=== PATIENT | female | born 1985 | race American Indian/Alaskan Native ===

== ENCOUNTER 2017-03-09 10:30 | Emergency (ER) | payer MEDICAID ==
[2017-03-09 11:06] VITALS: BP 132/86; PULSE 81; RESP 20; TEMP 98.4; O2SAT 100
[2017-03-09] MEDS ORDERED: Naproxen 500 MG TAB PO ONE ×2 (11:21→11:45)
== END 2017-03-09 12:58 | disposition home or self-care (01) ==
LOC: H.ER 10:30
DX: S43.402A Unspecified sprain of left shoulder joint, initial encounter (principal); V03.10XA Pedestrian on foot injured in collision with car, pick-up truck or van in traffic accident, initial encounter; Y92.410 Unspecified street and highway as the place of occurrence of the external cause

== ENCOUNTER 2017-03-10 10:24 | Emergency (ER) | payer MEDICAID ==
[2017-03-10 10:34] VITALS: BP 147/90; PULSE 84; RESP 18; TEMP 98.9; O2SAT 99
[2017-03-10] MEDS ORDERED: Oxycodone/Acetaminophen 5/325 mg Tab PO STA (11:18)
[2017-03-10] MEDS ORDERED: Oxycodone/Acetaminophen 5/325 mg Tab ONE (11:39)
== END 2017-03-10 12:29 | disposition home or self-care (01) ==
LOC: H.ER 10:24
DX: S43.402A Unspecified sprain of left shoulder joint, initial encounter (principal)
CPT/HCPCS: 73060; 73080; 81025; 96372; 99283; J1885

== ENCOUNTER 2017-10-18 18:49 | Emergency (ER) | payer MEDICAID ==
[2017-10-18 18:56] VITALS: BP 156/90; PULSE 103; RESP 40; TEMP 98.6; O2SAT 100
[2017-10-18] MEDS ORDERED: Sodium Chloride 0.9% 1,000 ML IV STA (19:40)
--- NOTE | 2017-10-18 20:14 | ED PDOC ---
HPI: Chest Pain Time Seen by Provider: 10/18/17 19:19 Chief Complaint (Nursing): Chest Pain Chief Complaint (Provider): Chest Pain History Per: Patient History/Exam Limitations: no limitations Onset/Duration Of Symptoms: Hrs (today) Current Symptoms Are (Timing): Still Present Associated Symptoms: Nausea, Dyspnea Additional Complaint(s): Talya Nguyen is a 32 year old female, with a past medical history of ovarian cysts, who presents to the emergency department complaining of chest pain associated with nausea onset today. Patient reports she went to work when she became acutely nauseous with shortness of breath and chest pain. She is extremely tearful on arrival and states she has been confronting fertility issues. Patient does report feeling anxious lately and preoccupied about not becoming . She denies any other medical complaints. PMD: None provided. Past Medical History Reviewed: Historical Data, Nursing Documentation, Vital Signs Vital Signs: Last Vital Signs Temp 98.6 F 10/18/17 18:51 Pulse 103 H 10/18/17 18:51 Resp 40 H 10/18/17 18:51 BP 156/90 H 10/18/17 18:51 Pulse Ox 100 10/18/17 20:18 - Medical History PMH: Anemia Other PMH: ovarian cysts - Surgical History Other surgeries: hip surgery as a child - Family History Family History: States: No Known Family Hx - Social History Current smoker - smoking cessation education provided: No Alcohol: None Drugs: Denies - Immunization History Hx Tetanus Toxoid Vaccination: No Hx Influenza Vaccination: No Hx Pneumococcal Vaccination: No - Home Medications Home Medications: Ambulatory Orders Medication Instructions Recorded Ibuprofen [Motrin] 600 mg PO Q6 #30 tab 09/13/17 Naproxen [Naprosyn] 1 tab PO BID PRN #25 tab 09/20/17 Metoclopramide [Reglan] 10 mg PO Q6 PRN #12 tab 10/18/17 - Allergies Allergies/Adverse Reactions: Allergies Allergy/AdvReac Type Severity Reaction Status Date / Time No Known Allergies Allergy Verified 10/18/17 18:50 Review of Systems ROS Statement: Except As Marked, All Systems Reviewed And Found Negative Cardiovascular: Positive for: Chest Pain Respiratory: Positive for: Shortness of Breath Gastrointestinal: Positive for: Nausea Physical Exam - Reviewed Nursing Documentation Reviewed: Yes Vital Signs Reviewed: Yes - Physical Exam Appears: Positive for: Non-toxic, No Acute Distress (tearful) Head Exam: Positive for: ATRAUMATIC, NORMOCEPHALIC Skin: Positive for: Normal Color, Warm, Dry Eye Exam: Positive for: Normal appearance, EOMI, PERRL ENT: Positive for: Normal ENT Inspection Neck: Positive for: Painless ROM Cardiovascular/Chest: Positive for: Regular Rate, Rhythm. Negative for: Murmur Respiratory: Positive for: Normal Breath Sounds. Negative for: Respiratory Distress Gastrointestinal/Abdominal: Positive for: Normal Exam, Soft. Negative for: Tenderness Back: Positive for: Normal Inspection. Negative for: L CVA Tenderness, R CVA Tenderness, Vertebral Tenderness Extremity: Positive for: Normal ROM (upper and lower extremities). Negative for : Deformity, Swelling Neurologic/Psych: Positive for: Alert, Oriented (x3), Mood/Affect (depressed). Negative for: Motor/Sensory Deficits - Laboratory Results Result Diagrams: 10/18/17 20:05 10/18/17 20:05 - ECG O2 Sat by Pulse Oximetry: 100 (RA) Pulse Ox Interpretation: Normal Medical Decision Making Medical Decision Making: Initial Impression: 32 y/o female with acute panic Initial Plan: --EKG --CMP --Crisis evaluation --Urine --Urine dipstick --CBC w/ differential --Sodium Chloride 1,000 ml IV 1,000 mls/hr --Zofran ODT 4 mg IV --Accucheck --Urinalysis --Reevaluation 21:55 -Labs reviewed and showed no clinical significant abnormalities. Patient reports significant improvement of symptoms. -Patient evaluated by crisis, diagnosis anxiety. -Upon provider reevaluation patient is feeling better, is medically stable, and requires no further treatment in the ED at this time. Patient will be discharged home with prescription for Reglan. Counseling was provided and all questions were answered regarding diagnosis. There is agreement to discharge plan. Return if symptoms persist or worsen. ----- Scribe Attestation: Documented by Enzo Leanne, acting as a scribe for Crispin Alvarez MD. Provider Scribe Attestation: All medical record entries made by the Scribe were at my direction and personally dictated by me. I have reviewed the chart and agree that the record accurately reflects my personal performance of the history, physical exam, medical decision making, and the department course for this patient. I have also personally directed, reviewed, and agree with the discharge instructions and disposition. Disposition - Clinical Impression Clinical Impression: Anxiety - Disposition Disposition: Routine/Home Disposition Time: 21:55 Condition: STABLE Prescriptions: Metoclopramide [Reglan] 10 mg PO Q6 PRN #12 tab PRN Reason: headache/nausea/vomiting Instructions: Anxiety, Adult (DC) Forms: [facility] (Portuguese), [facility] ED School/Work Excuse
[2017-10-18 20:17] LABS: BASO % 0.3 % (0.0-2.0); EOS % 0.1 % (0.0-4.0); HEMOGLOBIN 13.6 g/dL (12.0-16.0); LYMPH # 2.2 K/uL (1.0-4.3); LYMPH % 15.4 % (20.0-40.0); MEAN CELL VOLUME 92.5 fl (81.0-99.0); MEAN CORPUSCULAR HGB CONC 33.6 g/dL (33.0-37.0); MEAN PLATELET VOLUME 10.2 fl (7.2-11.7); MONO # 0.5 K/uL (0.0-0.8); MONO % 3.5 % (0.0-10.0); NEUT # 11.6 K/uL (1.8-7.0); NEUT % 80.7 % (50.0-75.0); NRBC % 0.1 % (0.0-0.0); RBC 4.39 Mil/uL (3.80-5.20); RED CELL DISTRIBUTION WIDTH 13.1 % (11.5-14.5); WHITE BLOOD COUNT 14.4 K/uL (4.8-10.8)
[2017-10-18 20:31] LABS: ALB/GLOB RATIO 1.2 (1.0-2.1); ALBUMIN 4.5 g/dL (3.5-5.0); ALT/SGPT 40 U/L (9-52); AST/SGOT 30 U/L (14-36); BLOOD UREA NITROGEN 10 mg/dl (7-17); CALCIUM 9.7 mg/dL (8.4-10.2); GFR AFRICAN-AMERICAN > 60; GFR NON-AFRICAN AMERICAN > 60
[2017-10-18 20:42] LABS: SQUAMOUS EPITHIAL 7 /hpf (0-5); URINE BACTERIA RARE (<OCC); URINE BILIRUBIN NEGATIVE (NEGATIVE); URINE BLOOD NEGATIVE (NEGATIVE); URINE CLARITY SLIGHTY-CLOUDY (Clear); URINE COLOR STRAW (YELLOW); URINE GLUCOSE (UA) NEG (Normal); URINE LEUKOCYTE ESTERASE NEG Leu/uL (Negative); URINE PROTEIN NEGATIVE (NEGATIVE); URINE UROBILINOGEN 0.2-1.0 mg/dL (0.2-1.0)
--- NOTE | 2017-10-19 11:58 | CARD ---
APPROVED REPORT EKG Measurement Heart [id number] <Conclusion> Normal sinus rhythm T wave abnormality, consider lateral ischemia Prolonged QT Abnormal ECG
== END 2017-10-18 22:15 | disposition home or self-care (01) ==
LOC: H.ER 18:49
DX: F41.9 Anxiety disorder, unspecified (principal); N83.209 Unspecified ovarian cyst, unspecified side
CPT/HCPCS: 80053; 81003; 81025; 82948; 85025; 93005; 96374; 99283; J2405; J7040

== ENCOUNTER 2017-11-23 10:11 | Emergency (ER) | payer MEDICAID ==
[2017-11-23 10:13] VITALS: BMI 30.7
--- NOTE | 2017-11-23 11:12 | ED PDOC ---
HPI: Female Pain Time Seen by Provider: 11/23/17 10:58 Chief Complaint (Nursing): Female Genitourinary Chief Complaint (Provider): ABD PAIN History Per: Patient (32 Y/O FEMALE HERE FOR EVALUATION OF VAGINAL BLEEDING AND PELVIC PAIN SINCE MONDAY. STATES SHE HAD A HYSTEROSALGINGOGRAM LAST WEEK. HAS HAD INCREASING LOWER ABDOMINAL PAIN NOT RESOLVING. DENIES ANY DYSURIA/URINARY FREQUENCY/FEVERS/CHILLS. NO NAUSEA NOTED.) Past Medical History Reviewed: Historical Data, Nursing Documentation, Vital Signs Vital Signs: Last Vital Signs Temp 98.4 F 11/23/17 10:16 Pulse 72 11/23/17 10:16 Resp 17 11/23/17 10:16 BP 130/83 11/23/17 10:16 Pulse Ox 97 11/23/17 10:16 - Medical History PMH: Anemia Denies: Diabetes, Hepatitis, HIV, HTN, Seizures, Sexually Transmitted Disease - Family History Family History: States: No Known Family Hx - Immunization History Hx Tetanus Toxoid Vaccination: No Hx Influenza Vaccination: No Hx Pneumococcal Vaccination: No - Home Medications Home Medications: Ambulatory Orders Medication Instructions Recorded Ibuprofen [Motrin] 600 mg PO Q6 #30 tab 09/13/17 Naproxen [Naprosyn] 1 tab PO BID PRN #25 tab 09/20/17 Metoclopramide [Reglan] 10 mg PO Q6 PRN #12 tab 10/18/17 Naproxen 375 mg PO Q8 PRN #21 tablet 11/23/17 - Allergies Allergies/Adverse Reactions: Allergies Allergy/AdvReac Type Severity Reaction Status Date / Time No Known Allergies Allergy Verified 10/18/17 18:50 Review of Systems ROS Statement: Except As Marked, All Systems Reviewed And Found Negative Physical Exam - Reviewed Nursing Documentation Reviewed: Yes Vital Signs Reviewed: Yes - Physical Exam Appears: Positive for: Well, Non-toxic, No Acute Distress Head Exam: Positive for: ATRAUMATIC, NORMAL INSPECTION, NORMOCEPHALIC Skin: Positive for: Normal Color, Warm, DRY Eye Exam: Positive for: EOMI, Normal appearance, PERRL ENT: Positive for: Normal ENT Inspection Neck: Positive for: Normal, Painless ROM Cardiovascular/Chest: Positive for: Regular Rate, Rhythm Respiratory: Positive for: CNT, Normal Breath Sounds Gastrointestinal/Abdominal: Positive for: Normal Exam, Soft Pelvic Exam: Positive for: Active Bleeding (MODERATE VAGINAL BLEEDING NOTED.). Negative for: Tender W/Cervical Motion, Tender Adnexa, Tender Uterus Back: Positive for: Normal Inspection Extremity: Positive for: Normal ROM Neurologic/Psych: Positive for: Alert, Oriented - Laboratory Results Result Diagrams: 11/23/17 11:45 11/23/17 11:45 Urine POC: Negative - ECG O2 Sat by Pulse Oximetry: 97 - Progress ED Course And Treament: Patient upset in ED. Demanding pain medication prior to exam now that urine status noted as negative. Patient notes moderate suprapubic tenderness greater than associated with her usual menses. morphine 2 mg iv x 1 dose Patient requests 'other 1/2 of morphine dose'. serum beta israel confimed < 2 toradol 15mg iv x 1 dose US PELVIC IMPRESSION: Dominant follicle and/or small benign appear left ovarian simple cyst measures 2.0 x 1.8 x 1.7 cm Patient notes improvement of symptoms. Disposition - Clinical Impression Clinical Impression: Ovarian cyst, Abdominal pain - Patient ED Disposition Is Patient to be Admitted: No - Disposition Disposition: Routine/Home Disposition Time: 13:10 Condition: FAIR Prescriptions: Naproxen 375 mg PO Q8 PRN #21 tablet PRN Reason: Pain, Moderate (4-7) Instructions: Ovarian Cysts, Menstrual Cramps (DC) Forms: [facility] (Bur[place]ian), [facility] Ex[facility]
[2017-11-23] MEDS ORDERED: Sodium Chloride 0.9% 1,000 ML IV STA (11:38)
[2017-11-23 12:04] LABS: BASO # 0.1 K/uL (0.0-0.2); BASO % 0.5 % (0.0-2.0); EOS % 0.4 % (0.0-4.0); HEMOGLOBIN 14.3 g/dL (12.0-16.0); LYMPH # 1.7 K/uL (1.0-4.3); MEAN CELL VOLUME 92.2 fl (81.0-99.0); MEAN CORPUSCULAR HEMOGLOBIN 31.2 pg (27.0-31.0); MEAN CORPUSCULAR HGB CONC 33.8 g/dL (33.0-37.0); MEAN PLATELET VOLUME 9.6 fl (7.2-11.7); MONO # 0.7 K/uL (0.0-0.8); MONO % 6.5 % (0.0-10.0); NEUT # 8.6 K/uL (1.8-7.0); NEUT % 77.6 % (50.0-75.0); NRBC % 0.1 % (0.0-0.0); RBC 4.6 Mil/uL (3.80-5.20); RED CELL DISTRIBUTION WIDTH 13.2 % (11.5-14.5); WHITE BLOOD COUNT 11.1 K/uL (4.8-10.8)
[2017-11-23 12:08] LABS: SQUAMOUS EPITHIAL 1 /hpf (0-5); URINE BILIRUBIN NEGATIVE (NEGATIVE); URINE BLOOD MODERATE (NEGATIVE); URINE CLARITY SLIGHTY-CLOUDY (Clear); URINE COLOR YELLOW (YELLOW); URINE GLUCOSE (UA) NEG (Normal); URINE LEUKOCYTE ESTERASE NEG Leu/uL (Negative); URINE PROTEIN NEGATIVE (NEGATIVE); URINE UROBILINOGEN 0.2-1.0 mg/dL (0.2-1.0)
[2017-11-23 12:19] LABS: ALB/GLOB RATIO 1.2 (1.0-2.1); ALBUMIN 4.3 g/dL (3.5-5.0); ALT/SGPT 27 U/L (9-52); AST/SGOT 23 U/L (14-36); BLOOD UREA NITROGEN 8 mg/dl (7-17); CALCIUM 9.1 mg/dL (8.4-10.2); GFR AFRICAN-AMERICAN > 60; GFR NON-AFRICAN AMERICAN > 60
--- NOTE | 2017-11-23 13:00 | US ---
HISTORY: ABDOMINAL PAIN COMPARISON: None available. TECHNIQUE: Transvaginal FINDINGS: UTERUS: Measures 7.0 x 4.2 x 3 point sick cm. Normal in size and appearance. No fibroid or other mass lesion seen. ENDOMETRIUM: Measures 4 mm in diameter. Unremarkable. CERVIX: No cervical abnormality identified. RIGHT OVARY: Measures 2.7 x 2.4 x 1.9 cm. No solid mass. Normal flow. LEFT OVARY: Measures 4.4 x 2.7 x 2.7 cm. No solid mass. Normal flow. Dominant follicle and/or small benign appear left ovarian simple cyst measures 2.0 x 1.8 x 1.7 cm FREE FLUID: No significant free fluid noted. OTHER FINDINGS: None. IMPRESSION: Dominant follicle and/or small benign appear left ovarian simple cyst measures 2.0 x 1.8 x 1.7 cm
[2017-11-23 13:55] VITALS: BP 128/78; PULSE 69; RESP 15; TEMP 98.1; O2SAT 98
== END 2017-11-23 13:55 | disposition home or self-care (01) ==
LOC: H.ER 10:11
DX: N83.202 Unspecified ovarian cyst, left side (principal)
CPT/HCPCS: 76830; 80053; 81003; 81025; 84702; 85025; 87086; 87491; 87591; 96361; 96374; 96375; 99284; J1885; J2270; J7030

== ENCOUNTER 2018-05-31 15:44 | Emergency (ER) | payer OTHER, BC ==
[2018-05-31 15:44] VITALS: BMI 30.7
[2018-05-31 16:05] VITALS: BP 123/79; PULSE 67; RESP 16; TEMP 98.8; O2SAT 100
--- NOTE | 2018-05-31 17:59 | RAD ---
Date of service: 05/31/2018 PROCEDURE: Radiographs of the pelvis. HISTORY: trauma COMPARISON: None. FINDINGS: BONES: Pelvic Bones: Unremarkable. Hips: Grossly unremarkable. JOINTS: Sacroiliac Joints: Unremarkable. Pubic Symphysis: Unremarkable. OTHER FINDINGS: Partially fenestrated solitary orthopedic screw proximal left femur perhaps related to surgical repair of slipped capital femoral epiphysis. IMPRESSION: Unremarkable radiographs of the pelvis.
--- NOTE | 2018-05-31 19:06 | ED PDOC ---
Lower Extremity Pain/Injury Time Seen by Provider: 05/31/18 16:53 Chief Complaint (Nursing): Lower Extremity Problem/Injury Chief Complaint (Provider): Lower Extremity Problem/Injury History Per: Patient History/Exam Limitations: no limitations Onset/Duration Of Symptoms: Days (x1) Current Symptoms Are (Timing): Still Present Additional Complaint(s): 32 y/o female presents to the ED with hip pain onset a day ago. Patient recalls being in the restroom when she lost balance while approaching the sink and fell, prompting her visit. She has been ambulatory. Otherwise, patient denies any head injury and any other complaints. PMD: Antonietta Rosa - Hip Description Of Injury: Fell, Lost Balance Past Medical History Reviewed: Historical Data, Nursing Documentation, Vital Signs Vital Signs: Last Vital Signs Temp 98.8 F 05/31/18 16:02 Pulse 67 05/31/18 16:02 Resp 16 05/31/18 16:02 BP 123/79 05/31/18 16:02 Pulse Ox 100 05/31/18 16:02 - Medical History PMH: Anemia Denies: Diabetes, Hepatitis, HIV, HTN, Seizures, Sexually Transmitted Disease - Surgical History Surgical History: No Surg Hx - Family History Family History: States: Unknown Family Hx - Immunization History Hx Tetanus Toxoid Vaccination: No Hx Influenza Vaccination: No Hx Pneumococcal Vaccination: No - Home Medications Home Medications: Ambulatory Orders Medication Instructions Recorded Ibuprofen [Motrin] 600 mg PO Q6 #30 tab 09/13/17 RX: Naproxen [Naprosyn] 1 tab PO BID PRN #25 tab 09/20/17 Metoclopramide [Reglan] 10 mg PO Q6 PRN #12 tab 10/18/17 RX: Naproxen 375 mg PO Q8 PRN #21 tablet 11/23/17 RX: Ibuprofen [Motrin Tab] 600 mg PO TID #15 tab 05/31/18 - Allergies Allergies/Adverse Reactions: Allergies Allergy/AdvReac Type Severity Reaction Status Date / Time No Known Allergies Allergy Verified 10/18/17 18:50 Review of Systems ROS Statement: Except As Marked, All Systems Reviewed And Found Negative Musculoskeletal: Positive for: Other (left hip pain) Physical Exam - Reviewed Nursing Documentation Reviewed: Yes Vital Signs Reviewed: Yes - Physical Exam Appears: Positive for: Well, No Acute Distress Head Exam: Positive for: ATRAUMATIC, NORMAL INSPECTION, NORMOCEPHALIC Skin: Positive for: Normal Color, Warm, Dry Eye Exam: Positive for: Normal appearance, EOMI, PERRL Cardiovascular/Chest: Positive for: Regular Rate, Rhythm. Negative for: Murmur Respiratory: Positive for: Normal Breath Sounds. Negative for: Wheezing, Respiratory Distress Extremity: Positive for: Normal ROM (full left hip ROM), Tenderness (to the left hip area) - ECG O2 Sat by Pulse Oximetry: 100 (RA) Pulse Ox Interpretation: Normal Medical Decision Making Medical Decision Making: Time: 17:55 Pelvis X-Ray showed no fracture. Hardware in place. Patient had a left hip fracture 20 plus years ago without complication. Pelvis x-ray FINDINGS: BONES: Pelvic Bones: Unremarkable. Hips: Grossly unremarkable. JOINTS: Sacroiliac Joints: Unremarkable. Pubic Symphysis: Unremarkable. OTHER FINDINGS: Partially fenestrated solitary orthopedic screw proximal left femur perhaps related to surgical repair of slipped capital femoral epiphysis. IMPRESSION: Unremarkable radiographs of the pelvis. Patient will be instructed on crutches use and discharged with Motrin. Follow up with orthopedist. Scribe Attestation: Documented by Belkis Merritt , acting as a scribe for Kerry Ocampo. Provider Scribe Attestation: All medical record entries made by the Scribe were at my direction and personally dictated by me. I have reviewed the chart and agree that the record accurately reflects my personal performance of the history, physical exam, medical decision making, and the department course for this patient. I have also personally directed, reviewed, and agree with the discharge instructions and disposition. Disposition - Clinical Impression Clinical Impression: Hip injury - Patient ED Disposition Is Patient to be Admitted: No Counseled Patient/Family Regarding: Diagnosis, Need For Followup - Disposition Referrals: Chandni Lou MD [Staff Provider] - Disposition: Routine/Home Disposition Time: 19:52 Condition: STABLE Prescriptions: RX: Ibuprofen [Motrin Tab] 600 mg PO TID #15 tab Instructions: Hip Pain (DC) Forms: [facility] (Bulgarian), [facility] ED School/Work Excuse
== END 2018-05-31 19:44 | disposition home or self-care (01) ==
LOC: H.ER 15:44
DX: S79.911A Unspecified injury of right hip, initial encounter (principal); W19.XXXA Unspecified fall, initial encounter; Y92.89 Other specified places as the place of occurrence of the external cause

== ENCOUNTER 2018-06-15 15:17 | Emergency (ER) | payer BC, MEDICAID ==
[2018-06-15 15:17] VITALS: BMI 30.7
[2018-06-15 15:41] VITALS: RESP 16
[2018-06-15] MEDS ORDERED: Sodium Chloride 0.9% 1,000 ML IV STA (16:11)
[2018-06-15] MEDS ORDERED: Iohexol 240 (50 ml) PO ONE (16:11)
--- NOTE | 2018-06-15 16:16 | ED PDOC ---
HPI:Nausea, Vomiting, Diarrhea Time Seen by Provider: 06/15/18 15:46 Chief Complaint (Nursing): GI Problem Chief Complaint (Provider): GI Problem History Per: Patient History/Exam Limitations: no limitations Onset/Duration Of Symptoms: Days (x6) Associated Symptoms: Nausea, Vomiting, Diarrhea. denies: Chest Pain Additional Complaint(s): 33 y/o female with history of migraines presents to ER for evaluation of nausea, vomiting and diarrhea onset 6 days ago. Patient reports associate epigastric abdominal pain that started today, headache, cloudy vision and states she feels hot. She states symptoms appear in the middle of the night but today is worse and she has been vomiting since the morning with about 2 hours in between each episode. Patient reports the headaches are not the worse of her life and states she took test last night that was negative. She denies any chest pain, shortness of breath, leg pain, weakness, numbness, neck pain, blood in diarrhea or vomiting, recent travel or eating new food. Headaches same as usual. PMD: Antonietta Rosa Past Medical History Reviewed: Historical Data, Nursing Documentation, Vital Signs Vital Signs: Last Vital Signs Temp 98.7 F 06/15/18 15:40 Pulse 81 06/15/18 15:40 Resp 16 06/15/18 15:40 BP 156/110 H 06/15/18 15:40 Pulse Ox 100 06/15/18 15:40 - Medical History PMH: Anemia, Migraine Denies: Diabetes, Hepatitis, HIV, HTN, Seizures, Sexually Transmitted Disease - Surgical History Surgical History: No Surg Hx - Family History Family History: States: Unknown Family Hx - Immunization History Hx Tetanus Toxoid Vaccination: No Hx Influenza Vaccination: No Hx Pneumococcal Vaccination: No - Home Medications Home Medications: Ambulatory Orders Medication Instructions Recorded Ibuprofen [Motrin] 600 mg PO Q6 #30 tab 09/13/17 Naproxen [Naprosyn] 1 tab PO BID PRN #25 tab 09/20/17 Metoclopramide [Reglan] 10 mg PO Q6 PRN #12 tab 10/18/17 Naproxen 375 mg PO Q8 PRN #21 tablet 11/23/17 Ibuprofen [Motrin Tab] 600 mg PO TID #15 tab 05/31/18 Famotidine [Pepcid] 20 mg PO DAILY PRN #6 tab 06/15/18 Ibuprofen [Motrin] 600 mg PO TID 7 Days tab 06/15/18 - Allergies Allergies/Adverse Reactions: Allergies Allergy/AdvReac Type Severity Reaction Status Date / Time No Known Allergies Allergy Verified 06/15/18 15:37 Review of Systems ROS Statement: Except As Marked, All Systems Reviewed And Found Negative Constitutional: Positive for: Fever (feels hot) Cardiovascular: Negative for: Chest Pain Respiratory: Negative for: Shortness of Breath Gastrointestinal: Positive for: Nausea, Vomiting, Abdominal Pain (epigastric), Diarrhea Musculoskeletal: Negative for: Neck Pain, Leg Pain Neurological: Positive for: Headache. Negative for: Weakness, Numbness Physical Exam - Reviewed Nursing Documentation Reviewed: Yes Vital Signs Reviewed: Yes - Physical Exam Appears: Positive for: Non-toxic, No Acute Distress Head Exam: Positive for: ATRAUMATIC, NORMOCEPHALIC Skin: Positive for: Normal Color, Warm, Dry Eye Exam: Positive for: Normal appearance, EOMI, PERRL ENT: Positive for: Normal ENT Inspection Neck: Positive for: Normal, Painless ROM, Supple Cardiovascular/Chest: Positive for: Regular Rate, Rhythm. Negative for: Murmur Respiratory: Positive for: Normal Breath Sounds. Negative for: Wheezing Gastrointestinal/Abdominal: Positive for: Soft, Tenderness (epigastric and RLQ). Negative for: Other (Flank tenderness bilaterally) Back: Positive for: Normal Inspection. Negative for: L CVA Tenderness, R CVA Tenderness Extremity: Positive for: Normal ROM Neurologic/Psych: Positive for: Alert, licensed plumber II-XII, Oriented (x3). Negative for: Motor/Sensory Deficits, Aphasia, Facial Droop - Laboratory Results Result Diagrams: 06/15/18 17:00 06/15/18 17:00 Lab Results: no acute - ECG O2 Sat by Pulse Oximetry: 100 (RA) Pulse Ox Interpretation: Normal - CT Scan/US head Other Rad Studies (CT/US): Read By Radiologist Other Rad Interpretation: no acute ct Other Rad Studies (CT/US): Read By Radiologist Other Rad Interpretation: no acute - Progress ED Course And Treament: 2007: Stable. AAOx3. Pain free. Tolerated PO. Pt. is yelling at staff and demanding stuff. Security at bedside. Pt. won't let staff see if she still has her IV in. Medical Decision Making Medical Decision Making: Time: 1609 Initial Plan: --CT Abdomen/Pelvis --CMP --Lipase --Urine --CBC --Omnipaque 50 ml PO --Reglan 10 mg IV --Toradol 15 mg IVP 1710 Patient reports worsening of headache after Reglan and Toradol. Will obtain head CT and give Morphine. [address] FINDINGS: HEMORRHAGE: No acute parenchymal, subarachnoid or extra-axial hemorrhage. BRAIN: No mass effect or edema. No atrophy or chronic microvascular ischemic changes. VENTRICLES: Unremarkable. No hydrocephalus. CALVARIUM: No acute calvarial fractures. PARANASAL SINUSES: Unremarkable as visualized. No significant inflammatory changes. MASTOID AIR CELLS: Unremarkable as visualized. No inflammatory changes. OTHER FINDINGS: None. IMPRESSION: No acute intracranial hemorrhage.. 1907 CT Abdomen/Pelvis FINDINGS: LUNG BASES: The lung bases appear clear. No pleural effusions are seen. LIVER: Unremarkable. GALLBLADDER AND BILE DUCTS: The gallbladder appears within normal limits. No radioopaque gallstones are seen. No biliary ductal dilatation is evident. PANCREAS: Unremarkable. SPLEEN: Unremarkable. ADRENAL GLANDS: Unremarkable. KIDNEYS, URETERS, AND BLADDER: Right renal cyst measuring 6.4 x 5.5 cm. There is no hydronephrosis or hydrou reter. No urinary calculi are seen. Uterus is prominent and heterogeneous in attenuation. Minimal cystic changes suspected right adnexal region. There is a distinct cyst measuring 1.7 x 2.3 cm within the left ovary. STOMACH AND BOWEL: Unremarkable appearance of the stomach and bowel. No evidence of bowel obstruction. No evidence suggesting enteritis or colitis. APPENDIX: No evidence of acute appendicitis on CT examination. PERITONEUM: No free fluid. No free air. LYMPH NODES: No lymphadenopathy is evident. VASCULATURE: No evidence of abdominal aortic aneurysm. BONES: No aggressive appearing osseous lesion. No acute osseous pathology evident. Postsurgical changes are seen in the left proximal femur. IMPRESSION: No acute intra-abdominal abnormality. Right renal cyst measuring 6.4 x 5.5 cm. Prominent mildly heterogeneous uterus with minimal cystic change right adnexal region. A distinct cyst left ovary measuring 1.7 x 2.3 cm. Postsurgical changes left proximal femur. Clinical correlation advised. Scribe Attestation: Documented by Josselin Lao, acting as a scribe for Venancio Douglas MD. Provider Scribe Attestation: All medical record entries made by the Scribe were at my direction and personally dictated by me. I have reviewed the chart and agree that the record accurately reflects my personal performance of the history, physical exam, medical decision making, and the department course for this patient. I have also personally directed, reviewed, and agree with the discharge instructions and disposition. Disposition - Clinical Impression Clinical Impression: Abdominal pain, Headache, Chronic pain - Patient ED Disposition Is Patient to be Admitted: No Counseled Patient/Family Regarding: Studies Performed, Diagnosis, Need For Followup, Rx Given - Disposition Referrals: [facility] [Outside] - 06/18/18 Disposition: Routine/Home Disposition Time: 20:08 Condition: STABLE Additional Instructions: Return if not better in 3 days. Prescriptions: Famotidine [Pepcid] 20 mg PO DAILY PRN #6 tab PRN Reason: Pain Ibuprofen [Motrin] 600 mg PO TID 7 Days tab Instructions: Headache, Adult (DC), Stomach Ache and Stomach Upset
[2018-06-15] MEDS ORDERED: Iohexol 240 (50 ml) ONE (16:41)
[2018-06-15 17:31] LABS: BASO % 0.3 % (0.0-2.0); EOS # 0.1 K/uL (0.0-0.7); EOS % 0.8 % (0.0-4.0); HEMOGLOBIN 13.7 g/dL (12.0-16.0); LYMPH # 2.6 K/uL (1.0-4.3); LYMPH % 32.6 % (20.0-40.0); MEAN CELL VOLUME 93.1 fl (81.0-99.0); MEAN CORPUSCULAR HEMOGLOBIN 31.1 pg (27.0-31.0); MEAN CORPUSCULAR HGB CONC 33.4 g/dL (33.0-37.0); MEAN PLATELET VOLUME 9.5 fl (7.2-11.7); MONO # 0.6 K/uL (0.0-0.8); MONO % 7.2 % (0.0-10.0); NEUT # 4.7 K/uL (1.8-7.0); NEUT % 59.1 % (50.0-75.0); NRBC % 0.1 % (0.0-0.0); RBC 4.41 Mil/uL (3.80-5.20); WHITE BLOOD COUNT 7.9 K/uL (4.8-10.8)
[2018-06-15 17:38] LABS: ALB/GLOB RATIO 1.2 (1.0-2.1); ALBUMIN 4.3 g/dL (3.5-5.0); ALT/SGPT 32 U/L (9-52); AST/SGOT 33 U/L (14-36); BLOOD UREA NITROGEN 10 mg/dl (7-17); CALCIUM 9.3 mg/dL (8.4-10.2); GFR NON-AFRICAN AMERICAN > 60; LIPASE 76 U/L (23-300)
[2018-06-15] MEDS ORDERED: Morphine 4 MG/ML VIAL ONE (17:43)
--- NOTE | 2018-06-15 17:53 | CT ---
Date of service: 06/15/2018 PROCEDURE: CT HEAD WITHOUT CONTRAST. HISTORY: headache COMPARISON: None available. TECHNIQUE: Axial computed tomography images were obtained through the head/brain without intravenous contrast. Radiation dose: Total exam DLP = 845.15 mGy-cm. This CT exam was performed using one or more of the following dose reduction techniques: Automated exposure control, adjustment of the mA and/or kV according to patient size, and/or use of iterative reconstruction technique. FINDINGS: HEMORRHAGE: No acute parenchymal, subarachnoid or extra-axial hemorrhage. BRAIN: No mass effect or edema. No atrophy or chronic microvascular ischemic changes. VENTRICLES: Unremarkable. No hydrocephalus. CALVARIUM: No acute calvarial fractures. PARANASAL SINUSES: Unremarkable as visualized. No significant inflammatory changes. MASTOID AIR CELLS: Unremarkable as visualized. No inflammatory changes. OTHER FINDINGS: None. IMPRESSION: No acute intracranial hemorrhage..
[2018-06-15] MEDS ORDERED: Sodium Chloride 0.9% 50 ML IV ONE (18:05)
[2018-06-15] MEDS ORDERED: Iohexol 300 100 ML IJ ONE (18:05)
[2018-06-15 20:39] VITALS: BP 120/78; PULSE 78; TEMP 97.6; O2SAT 98
--- NOTE | 2018-06-16 12:35 | CT ---
Date of service: 06/15/2018 PROCEDURE: CT Abdomen and Pelvis with contrast HISTORY: abd pain COMPARISON: None. TECHNIQUE: Following oral and intravenous contrast administration, a CT examination of the abdomen and pelvis performed from the domes of the diaphragms to the symphysis pubis with reformatted datasets provided not only axial but also sagittal and coronal series. Coronal and sagittal reformats were generated. Contrast dose: Omnipaque 300, 95 cc Radiation dose: Total exam DLP = 712.74 mGy-cm. This CT exam was performed using one or more of the following dose reduction techniques: Automated exposure control, adjustment of the mA and/or kV according to patient size, and/or use of iterative reconstruction technique. FINDINGS: LOWER THORAX: Unremarkable. LIVER: Unremarkable. No gross lesion or ductal dilatation. GALLBLADDER AND BILE DUCTS: Unremarkable. PANCREAS: Unremarkable. No gross lesion or ductal dilatation. SPLEEN: Unremarkable. ADRENALS: Unremarkable. No mass. KIDNEYS AND URETERS: A large right renal cyst identified intrarenal at the upper midpole right kidney measuring 6.6 x 5.7 cm appearing simple. No solid parenchymal mass bilaterally. Left kidney appears unremarkable. No obstructive uropathy bilaterally. VASCULATURE: Unremarkable. No aortic aneurysm. No aortic atherosclerotic calcification or mural plaque present. BOWEL: Unremarkable. No obstruction. No gross mural thickening. APPENDIX: Normal appendix. PERITONEUM: Unremarkable. No free fluid. No free air. LYMPH NODES: Unremarkable. No enlarged lymph nodes. BLADDER: Unremarkable. REPRODUCTIVE: 2.0 cm left adnexal cyst with none appreciated at the right. BONES: Status post ORIF proximal left femoral neck with solitary compression screw identified in situ. OTHER FINDINGS: None. IMPRESSION: No definite acute abdominal or pelvic findings. A 2.0 cm left adnexal cysts identified and a simple cyst is seen at the upper pole right kidney 6.6 cm greatest dimension. No obstructive uropathy bilaterally. Prior proximal left femoral neck ORIF. Concordant preliminary report from [email or web address], 06/15/2018, 7:08 p.m..
== END 2018-06-15 20:39 | disposition home or self-care (01) ==
LOC: H.ER 15:17
DX: R10.13 Epigastric pain (principal); R51 Headache; G89.29 Other chronic pain
CPT/HCPCS: 70450; 74177; 80053; 81025; 83690; 85025; 96374; 99282; J1885; J2270; J2765; J7030; Q9966; Q9967

== ENCOUNTER 2018-10-01 09:44 | Emergency (ER) | payer BC ==
[2018-10-01 09:45] VITALS: BMI 30.7
[2018-10-01 10:33] VITALS: BP 122/81; PULSE 63; RESP 18; TEMP 98.3; O2SAT 100
[2018-10-01] MEDS ORDERED: Iohexol 240 (50 ml) PO ONE (10:59)
[2018-10-01] MEDS ORDERED: Iohexol 240 (50 ml) ONE (11:11)
[2018-10-01 11:20] LABS: BASO % 0.4 % (0.0-2.0); EOS % 0.6 % (0.0-4.0); HEMOGLOBIN 14.2 g/dL (12.0-16.0); LYMPH # 1.6 K/uL (1.0-4.3); LYMPH % 19.5 % (20.0-40.0); MEAN CELL VOLUME 95.2 fl (81.0-99.0); MEAN CORPUSCULAR HEMOGLOBIN 31.4 pg (27.0-31.0); MEAN CORPUSCULAR HGB CONC 32.9 g/dL (33.0-37.0); MEAN PLATELET VOLUME 9.8 fl (7.2-11.7); MONO # 0.5 K/uL (0.0-0.8); MONO % 6.4 % (0.0-10.0); NEUT # 6.1 K/uL (1.8-7.0); NEUT % 73.1 % (50.0-75.0); RBC 4.53 Mil/uL (3.80-5.20); RED CELL DISTRIBUTION WIDTH 13.3 % (11.5-14.5); WHITE BLOOD COUNT 8.3 K/uL (4.8-10.8)
[2018-10-01 11:43] LABS: ALB/GLOB RATIO 1.3 (1.0-2.1); ALBUMIN 4.4 g/dL (3.5-5.0); ALT/SGPT 33 U/L (9-52); AST/SGOT 34 U/L (14-36); BLOOD UREA NITROGEN 14 mg/dl (7-17); CALCIUM 9.2 mg/dL (8.4-10.2); GFR NON-AFRICAN AMERICAN > 60
--- NOTE | 2018-10-01 12:01 | ED PDOC ---
HPI: Abdomen Time Seen by Provider: 10/01/18 10:15 Chief Complaint (Nursing): Abdominal Pain Chief Complaint (Provider): Abdominal pain History Per: Patient History/Exam Limitations: no limitations Onset/Duration Of Symptoms: Days Outside of [place] travel?: No Current Symptoms Are (Timing): Still Present Location Of Pain/Discomfort: Diffuse, LUQ, LLQ Quality Of Discomfort: "Pain" Additional Complaint(s): 33yo female, otherwise well, comes to ER reporting abdominal discomfort, ongoing for one month but worse over the past one week. Patient states she has started going to the gym and has been taking vitamin B supplements. She reports associated nausea and feels more constipated; states she had a bowel movement this morning which was normal. Patient denies any vomiting, or urinary symptoms. PMD: Dr. Rosa Past Medical History Reviewed: Historical Data, Nursing Documentation, Vital Signs Vital Signs: Last Vital Signs Temp 98.3 F 10/01/18 10:29 Pulse 63 10/01/18 10:29 Resp 18 10/01/18 10:29 BP 122/81 10/01/18 10:29 Pulse Ox 100 10/01/18 10:29 - Medical History PMH: Anemia, Migraine Denies: Diabetes, Hepatitis, HIV, HTN, Seizures, Sexually Transmitted Disease - Surgical History Surgical History: No Surg Hx - Family History Family History: States: Unknown Family Hx - Social History Current smoker - smoking cessation education provided: No Alcohol: None Drugs: Denies - Immunization History Hx Tetanus Toxoid Vaccination: No Hx Influenza Vaccination: No Hx Pneumococcal Vaccination: No - Home Medications Home Medications: Ambulatory Orders Medication Instructions Recorded Ibuprofen [Motrin] 600 mg PO Q6 #30 tab 09/13/17 Naproxen [Naprosyn] 1 tab PO BID PRN #25 tab 09/20/17 Metoclopramide [Reglan] 10 mg PO Q6 PRN #12 tab 10/18/17 Naproxen 375 mg PO Q8 PRN #21 tablet 11/23/17 Ibuprofen [Motrin Tab] 600 mg PO TID #15 tab 05/31/18 Famotidine [Pepcid] 20 mg PO DAILY PRN #6 tab 06/15/18 Ibuprofen [Motrin] 600 mg PO TID 7 Days tab 06/15/18 - Allergies Allergies/Adverse Reactions: Allergies Allergy/AdvReac Type Severity Reaction Status Date / Time No Known Allergies Allergy Verified 10/01/18 10:28 Review of Systems ROS Statement: Except As Marked, All Systems Reviewed And Found Negative Constitutional: Negative for: Fever, Chills Gastrointestinal: Positive for: Nausea, Abdominal Pain, Constipation. Negative for: Vomiting, Diarrhea Physical Exam - Reviewed Nursing Documentation Reviewed: Yes Vital Signs Reviewed: Yes - Physical Exam Appears: Positive for: No Acute Distress Head Exam: Positive for: ATRAUMATIC, NORMAL INSPECTION, NORMOCEPHALIC Skin: Positive for: Normal Color Eye Exam: Positive for: Normal appearance ENT: Positive for: Normal ENT Inspection Neck: Positive for: Supple Cardiovascular/Chest: Positive for: Regular Rate, Rhythm Respiratory: Positive for: Normal Breath Sounds. Negative for: Respiratory Distress Gastrointestinal/Abdominal: Positive for: Bowel Sounds, Soft, Tenderness (diffuse tenderness left abdomen, no rebound or guarding. no tenderness in rlq or ruq ). Negative for: Mass, Guarding, Rebound Back: Positive for: Normal Inspection. Negative for: L CVA Tenderness, R CVA Tenderness Extremity: Positive for: Normal ROM. Negative for: Pedal Edema Neurological/Psych: Positive for: Awake, Alert, Normal Tone - Laboratory Results Result Diagrams: 10/01/18 11:10 10/01/18 11:10 Lab Results: Total Bilirubin 0.5 mg/dl (0.2-1.3) 10/01/18 11:10 AST 34 U/L (14-36) 10/01/18 11:10 ALT 33 U/L (9-52) 10/01/18 11:10 Alkaline Phosphatase 58 U/L (38-126) 10/01/18 11:10 Total Protein 7.9 G/DL (6.3-8.2) 10/01/18 11:10 Albumin 4.4 g/dL (3.5-5.0) 10/01/18 11:10 Globulin 3.5 gm/dL (2.2-3.9) 10/01/18 11:10 Albumin/Globulin Ratio 1.3 (1.0-2.1) 10/01/18 11:10 - ECG O2 Sat by Pulse Oximetry: 100 (RA) Pulse Ox Interpretation: Normal Medical Decision Making Medical Decision Makinyo with left sided abdominal pain sp taking vitamin supplements, rule out el ectrolyte abnormality, rule out diverticulitis Plan: -- Labs -- Urinalysis -- CT Abdomen/Pelvis w/o contrast 1130 Labs reviewed, no clinically significant abnormalities. UA pending. pt states seh feels better. no pain. 1202 Patient upset as she received a parking ticket while she was being cared for in the ER, she started yelling at engineering technical writer and nurse about her ticket; patient left ER prior to receiving CT scan and prior to completion of treatment. prior to her leaving before treatment was completed, i discussed the importance of getting the CT scan. and that leaving would mean missing potentially important or life threatening, treatable infection or inflammatory process that can only be visualized on CT. pt understood the risks of leaving against medical advice and that she would be taking full responsibility upon herself. pt aware of results, but was angry about parking ticket and before i could do her paperwork she pulled out her IV and walked out. Scribe Attestation: Documented by Shoshana Jacques acting as a scribe for Fam Arias MD. Provider Attestation: All medical record entries made by the Scribe were at my direction and personally dictated by me. I have reviewed the chart and agree that the record accurately reflects my personal performance of the history, physical exam, medical decision making, and the department course for this patient. I have also personally directed, reviewed, and agree with the discharge instructions and disposition. Disposition - Clinical Impression Clinical Impression: Abdominal discomfort - Patient ED Disposition Is Patient to be Admitted: No Counseled Patient/Family Regarding: Studies Performed, Diagnosis - Disposition Disposition: Left W/O Treatment Disposition Time: 12:10 Condition: STABLE Forms: [employer] (Romanian)
== END 2018-10-01 12:00 | disposition left against medical advice (07) ==
LOC: H.ER 09:44
DX: R10.9 Unspecified abdominal pain (principal)
CPT/HCPCS: 80053; 81025; 85025; 96374; 99283; Q9966